=== PATIENT | male | born 1935 | race Caucasian/White ===

== ENCOUNTER 2017-08-15 14:32 | Emergency (ER) | payer MEDICARE, BC ==
[2017-08-15 14:36] VITALS: BP 202/84; PULSE 79; RESP 16; TEMP 98.4; O2SAT 95
[2017-08-15] MEDS ORDERED: LIDOCAINE HCL 2% 20 ML VIAL INFIL ONE (15:00)
[2017-08-15] MEDS ORDERED: TETANUS/DIPHTHERIA TOXOID ADULT 0.5 ML VIAL IM ONE (15:00)
[2017-08-15] MEDS ORDERED: ASPI-516 CHEW (15:17)
[2017-08-15] MEDS ORDERED: ISOS30TA3 PO (15:17)
[2017-08-15] MEDS ORDERED: NOVOLOGMXP SQ ×2 (15:17)
[2017-08-15] MEDS ORDERED: PLAV75TA29 PO (15:17)
[2017-08-15] MEDS ORDERED: MEMA28CA PO (15:17)
[2017-08-15] MEDS ORDERED: LEVO0.5S18 EACH EYE (15:17)
[2017-08-15] MEDS ORDERED: CARV3.12 PO (15:17)
--- NOTE | 2017-08-15 15:24 | RADRPT ---
EXAM DATE/TIME: 08/15/2017 15:02 [facility] COMPARISON: No previous studies available for comparison. INDICATIONS : Fell down a flieght of stairs . RADIATION DOSE: 56.35 CTDIvol (mGy) MEDICAL HISTORY : Cardiovascular disease. SURGICAL HISTORY : None. ENCOUNTER: Initial ACUITY: 1 day PAIN SCALE: 2/10 LOCATION: cranial TECHNIQUE: Multiple contiguous axial images were obtained of the head. Using automated exposure control and adj ustment of the mA and/or kV according to patient size, radiation dose was kept as low as reasonably a chievable to obtain optimal diagnostic quality images. DICOM format image data is available electro nically for review and comparison. FINDINGS: CEREBRUM: The ventricles are normal for age. No evidence of midline shift, mass lesion, hemorrhage or acute in farction. No extra-axial fluid collections are seen. POSTERIOR FOSSA: The cerebellum and brainstem are intact. The 4th ventricle is midline. The cerebellopontine angle i s unremarkable. EXTRACRANIAL: The visualized portion of the orbits is intact. SKULL: The calvaria is intact. No evidence of skull fracture. CONCLUSION: Normal examination. Mild diffuse atrophy Jj Suarez MD on August 15, 2017 at 15:21 Board Certified Radiologist. This report was verified electronically.
[2017-08-15] MEDS ORDERED: LIDOCAINE HCL 2% 50 ML VIAL ONE (15:34)
--- NOTE | 2017-08-15 15:56 | RADRPT ---
EXAM DATE/TIME: 08/15/2017 15:31 [facility] COMPARISON: No previous studies available for comparison. INDICATIONS : Chest pain due to fall down stairs. MEDICAL HISTORY : None. SURGICAL HISTORY : None. ENCOUNTER: Initial ACUITY: 1 day PAIN SCORE: 5/10 LOCATION: Bilateral chest FINDINGS: A single view of the chest demonstrates the lungs to be symmetrically aerated without evidence of mas s, infiltrate or effusion. The cardiomediastinal contours are unremarkable. Osseous structures are intact. CONCLUSION: Normal examination. Jj Suarez MD on August 15, 2017 at 15:54 Board Certified Radiologist. This report was verified electronically.
--- NOTE | 2017-08-15 15:59 | RADRPT ---
EXAM DATE/TIME: 08/15/2017 15:04 [facility] COMPARISON: No previous studies available for comparison. INDICATIONS : Fell down a flight of stairs RADIATION DOSE: 34.40 CTDIvol (mGy) MEDICAL HISTORY : Cardiovascular disease. SURGICAL HISTORY : None. ENCOUNTER: Initial ACUITY: 1 day PAIN SCALE: 2/10 LOCATION: neck TECHNIQUE: Volumetric scanning of the cervical spine was performed. Multiplanar reconstructions in the sagittal, coronal and oblique axial planes were performed. Using automated exposure control and adjustment o f the mA and/or kV according to patient size, radiation dose was kept as low as reasonably achievable to obtain optimal diagnostic quality images. DICOM format image data is available electronically f or review and comparison. FINDINGS: VERTEBRAE: Normal vertebral body height. ALIGNMENT: No evidence of subluxation. Straightening of the cervical spine noted. Calcified plaque involving both carotid artery. C2-C3: The bony spinal canal is normal in size. No evidence of disc bulge or herniation. The neural forami na are bilaterally patent. C3-C4: A left paracentral disc protrusion narrows the left lateral recess and abuts the left ventral portion of the cord. Right lateral recess and both neural foramen are patent. C4-C5: There is disc space narrowing with a mild broad-based disc bulge. No abutment of the cord or central canal stenosis. Neural foramina are patent bilaterally. C5-C6: Disc space narrowing with a broad-based disc osteophyte complex eccentric to the left with narrowing of the central canal and flattening of the left ventral portion of the cord. Bony uncovertebral hyper trophy contributes to bilateral lateral recess narrowing particularly on the left. Moderate bilateral neural foraminal narrowing. C6-C7: Disc space narrowing with a broad-based disc osteophyte complex slightly eccentric to the left flatte ns the left ventral portion of the cord and causes central canal stenosis. Bony uncovertebral hypertr ophy contributes to bilateral lateral recess narrowing and bilateral neural foraminal narrowing. C7-T1: The bony spinal canal is normal in size. No evidence of disc bulge or herniation. The neural forami na are bilaterally patent. CONCLUSION: 1. No fracture or dislocation. 2. Degenerative changes as detailed above. 3. Carotid artery atherosclerotic calcifications. Oseas Lewis Jr., MD on August 15, 2017 at 15:52 Board Certified Radiologist. This report was verified electronically.
--- NOTE | 2017-08-15 15:59 | PD ---
HPI Chief Complaint: Fall Time Seen by Provider: 14:47 Travel History International Travel<30 days: No Contact w/Intl Traveler<30days: No Traveled to known affect area: No History of Present Illness HPI Patient is an 81-year-old male presenting to emergency for evaluation after falling down approximately 10 steps at 1 PM this afternoon, he sustained a laceration to his right fifth finger pad. 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 states that she was at the top of the stairs and when she looked back he had fallen down. Patient denies any pain, headache, back pain, chest pain, shortness of breath or abdominal pain. He doesn't remember why he fell. Patient has a history of dementia, late onset Alzheimer's. PFSH Past Medical History Hx Anticoagulant Therapy: Yes (PLAVIX) Alzheimer's Disease: Yes Cardiac Catheterization: Yes Coronary Artery Disease: Yes Dementia: Yes Diabetes: Yes Patient Takes Glucophage: No Diminished Hearing: Yes (SALAMATOF) Hypertension: Yes Tetanus Vaccination: > 5 Years Influenza Vaccination: No Past Surgical History Cardiac Surgery: Yes (L ILIAC ARTERY STENT, L ENDARTORECTMY ) Social History Alcohol Use: No Tobacco Use: No Substance Use: No Allergies-Medications (Allergen,Severity, Reaction): Coded Allergies: donepezil (Verified Allergy, Unknown, 08/15/17) Reported Meds & Prescriptions Reported Meds & Active Scripts Active Keflex (Cephalexin) 500 Mg Cap 500 Mg PO Q12H 7 Days Reported Isosorbide Mononitrate ER (Isosorbide Mononitrate) 30 Mg Devon 30 Mg PO DAILY Aspirin 81 Mg Chew 81 Mg CHEW DAILY Levobunolol Opth Drops (Levobunolol HCl) 0.5% Drops 1-2 Drop EACH EYE DAILY Novolog Mix 70-30 Inj (Insulin Aspart Prota 70%/Aspart 30%) 1,000 Unit/10 Ml Vial 34 Units SQ HS Novolog Mix 70-30 Inj (Insulin Aspart Prota 70%/Aspart 30%) 1,000 Unit/10 Ml Vial 14 Units SQ Carvedilol 3.125 Mg Tab 3.125 Mg PO BID Plavix (Clopidogrel Bisulfate) 75 Mg Tab 75 Mg PO DAILY Namenda Xr (Memantine) 28 Mg Caper 28 Mg PO DAILY Review of Systems Except as stated in HPI: all other systems reviewed are Neg Skin: Positive Other (laceration) Physical Exam Narrative GENERAL: Well-developed, well-nourished, alert elderly gentleman. Resting comfortably in no acute distress. SKIN: Warm and dry. 1.5 cm skin avulsion to the right fifth finger pad. HEAD: Atraumatic. Normocephalic. EYES: Pupils equal and round. No scleral icterus. No injection or drainage. ENT: No nasal bleeding or discharge. Mucous membranes pink and moist. NECK: Trachea midline. No JVD. CARDIOVASCULAR: Regular rate and rhythm. RESPIRATORY: No accessory muscle use. Clear to auscultation. Breath sounds equal bilaterally. GASTROINTESTINAL: Abdomen soft, non-tender, nondistended. Hepatic and splenic margins not palpable. MUSCULOSKELETAL: Extremities without clubbing, cyanosis, or edema. No obvious deformities. NEUROLOGICAL: Awake and alert. No obvious cranial nerve deficits. Motor grossly within normal limits. Five out of 5 muscle strength in the arms and legs. Normal speech. PSYCHIATRIC: Appropriate mood and affect; insight and judgment normal. Data Data Last Documented VS Vital Signs Date Time Temp Pulse Resp B/P (MAP) Pulse Ox O2 Delivery O2 Flow Rate FiO2 08/15/17 17:21 77 16 177/78 (111) 96 Room Air 08/15/17 14:36 98.4 Orders Orders Chest, Single Ap (08/15/17 ) Ct Brain W/O Iv Contrast(Rout) (08/15/17 ) Ct Cerv Spine W/O Contrast (08/15/17 ) Wound Care (08/15/17 14:56) Tetanus/Diphtheria Tox Adult (Tetanus/Di (08/15/17 15:00) Lidocaine 2% Inj (Xylocaine 2% Inj) (08/15/17 15:00) Lidocaine 2% Inj (Xylocaine 2% Inj) (08/15/17 15:34) Splint Or Brace Apply/Monitor (08/15/17 16:22) MDM Medical Decision Making Medical Screen Exam Complete: Yes Emergency Medical Condition: Yes Interpretation(s) Last Impressions Head CT 08/15/17 0000 Signed Impressions: Service Date/Time: Tuesday, August 15, 2017 15:02 - CONCLUSION: Normal examination. Mild diffuse atrophy Jj Suarez MD Chest X-Ray 08/15/17 0000 Signed Impressions: Service Date/Time: Tuesday, August 15, 2017 15:31 - CONCLUSION: Normal examination. Jj Suarez MD Cervical Spine CT 08/15/17 0000 Signed Impressions: Service Date/Time: Tuesday, August 15, 2017 15:04 - CONCLUSION: 1. No fracture or dislocation. 2. Degenerative changes as detailed above. 3. Carotid artery atherosclerotic calcifications. Oseas Lewis Jr., MD Vital Signs Date Time Temp Pulse Resp B/P (MAP) Pulse Ox O2 Delivery O2 Flow Rate FiO2 08/15/17 15:05 Room Air 08/15/17 14:36 98.4 79 16 202/84 (123) 95 Room Air Differential Diagnosis Intracranial hemorrhage versus contusion versus fracture versus sprain versus strain versus laceration versus avulsion versus other Narrative Course Patient is a 81-year-old male brought into the emergency department by his for evaluation after he sustained a mechanical fall approximately 2 hours prior to arrival. Patient has baseline Alzheimer's dementia, there is no focal deficits noted on exam. CT scan of the brain, cervical spine and chest x-ray ordered and pending. Please see procedure report for laceration repair. Patient's tetanus vaccine was updated in the emergency department today. CT scan of the brain and cervical spine which were read by the radiologist showed no acute disease. Chest x-ray shows no acute disease. was advised that sutures will need to come out in 10 days, she was encouraged to keep the stitches clean and dry, avoid submersion in water. She was encouraged to follow up with primary doctor. Additionally patient should return to emergency department for any new or worsening symptoms. verbalized understanding of instructions. was registered nurse. Patient is stable for discharge. BP was elevated on arrival, patient was kept in the emergency department until his blood pressure normalized. Procedures Procedure Narrative LACERATION LOCATION: Left fifth finger pad LENGTH: 1.5 cm NUMBER OF STITCHES/ALEJANDRO: 6 stitches REPAIR: The area of the laceration was prepped with Betadine and sterilely draped. The laceration was infiltrated with 1% lidocaine. The wound was copiously irrigated and explored without evidence of foreign body, tendon injury or neurovascular injury. The wound was closed using 5-0 Ethilon. This was a 1 layer repair. A sterile dressing was applied. The patient was advised to keep the dressing clean and dry. Patient tolerated the procedure well. Diagnosis Primary Impression: Fall Qualified Codes: W19.XXXA - Unspecified fall, initial encounter Additional Impressions: Avulsion of skin of finger Qualified Codes: S61.209A - Unspecified open wound of unspecified finger without damage to nail, initial encounter Tetanus toxoid vaccination administered at current visit Referrals: Primary Care Physician 1 week Patient Instructions: Care For Your Stitches (ED), Fall Prevention for Older Adults (DC), General Instructions Additional Instructions: Follow-up with your primary doctor Keep stitches clean and dry You may apply topical antibiotic ointment and clean dry bandage. Return to emergency department immediately for any new or worsening symptoms Stitches will need to be removed in 10 days Med/Other Pt SpecificInfo: Prescription(s) given Scripts Cephalexin (Keflex) 500 Mg Cap 500 MG PO Q12H for Infection for 7 Days, #14 CAP 0 Refills Prov: Ese Curiel 08/15/17 Disposition: 01 DISCHARGE HOME Condition: Stable Ese Curiel Aug 15, 2017 15:59
[2017-08-15] MEDS ORDERED: CEPH-460 PO (16:22)
[2017-08-15 16:49] VITALS: BP 222/98; PULSE 84; RESP 18; O2SAT 97
[2017-08-15 16:53] VITALS: BP 215/95; PULSE 80; RESP 18; O2SAT 98
[2017-08-15 17:21] VITALS: BP 177/78; PULSE 77; RESP 16; O2SAT 96
== END 2017-08-15 17:37 | disposition home or self-care (01) ==
LOC: NEPE 14:32
DX: S61.216A Laceration without foreign body of right little finger without damage to nail, initial encounter (principal); I10 Essential (primary) hypertension; I25.10 Atherosclerotic heart disease of native coronary artery without angina pectoris; E11.9 Type 2 diabetes mellitus without complications; G30.1 Alzheimer's disease with late onset; F02.80 Dementia in other diseases classified elsewhere, unspecified severity, without behavioral disturbance, psychotic disturbance, mood disturbance, and anxiety; W10.9XXA Fall (on) (from) unspecified stairs and steps, initial encounter; Z23 Encounter for immunization; Z79.4 Long term (current) use of insulin
CPT/HCPCS: 12001; 70450; 71010; 72125; 90471; 90714